=== PATIENT | female | born 1995 | race Caucasian/White ===

== ENCOUNTER 2022-11-16 12:30 | Emergency (ER) | payer OTHER ==
[~2022-11-16] VITALS: Ht 160 cm; Wt 88.5 kg
[2022-11-16 12:40] VITALS: O2SAT 100
[2022-11-16] MEDS ORDERED: CIPRODEX OTIC7.5 ML LEFT EAR (12:54)
[2022-11-16] MEDS ORDERED: IBUPROFEN600 MG PO (12:54)
[2022-11-16] MEDS ORDERED: IBUPROFEN 600 MG TAB PO STA (13:07)
[2022-11-16] MEDS ORDERED: DEXAMETHASONE SOD PHOS 10 MG/1 ML VIAL IM ONE ×2 (13:15)
[2022-11-16] MEDS ORDERED: TETRACAINE HCL 0.5% OPTH SOLN 4 ML BTL OP ONE ×2 (13:15)
[2022-11-16] MEDS ORDERED: IBUPROFEN 400 MG TAB PO ONE (13:15)
== END 2022-11-16 13:27 | disposition home or self-care (01) ==
LOC: ER 12:38
DX: H60.91 Unspecified otitis externa, right ear (principal); H66.91 Otitis media, unspecified, right ear
CPT/HCPCS: 99283; J1100